=== PATIENT | male | born 1985 | race Caucasian/White ===

== ENCOUNTER 2022-02-24 10:10 | Emergency (ER) | payer OTHER ==
[2022-02-24] MEDS ORDERED: FENTANYL CITR 100 MCG/2 ML ONE (10:31)
[2022-02-24] MEDS ORDERED: ONDANSETRON 4 MG/2 ML VIAL ONE (10:32)
[2022-02-24] MEDS ORDERED: NEOMYC/POLYMYX/GRAMICID OPTH 10 ML BTL ONE (10:32)
[2022-02-24] MEDS ORDERED: NA CHLORIDE 0.9% 1,000 ML ONE (10:32)
[2022-02-24] MEDS ORDERED: TDAP (DIPHTH,PERTUSS(ACELL),TET VAC) 0.5 ML VIAL IMVAC ONE (10:32)
[2022-02-24 10:39] LABS: Absolute Lymphocytes (CBC) 2.5 K/uL (0.7-4.9); Hematocrit 41.1 % (39.6-49.0); Lymphocytes % 32.2 % (15.3-44.8); MCV 87.1 fL (80-100); MPV 6.8 fL (7.6-11.3); RBC Red Blood Cell Count 4.72 M/uL (4.33-5.43)
[2022-02-24 10:54] LABS: Albumin 3.6 g/dL (3.4-5.0); Bilirubin Direct 0.1 mg/dL (0-0.2); Bilirubin Total 0.4 mg/dL (0.2-1.0); Potassium 3.2 mmol/L (3.5-5.1); Protein, Total 7.9 g/dL (6.4-8.2)
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
--- NOTE | 2022-02-24 11:33 | RAD REPORT ---
EXAM DESCRIPTION: Herminia Single View02/24/2022 11:21 am CLINICAL HISTORY: Chest pain COMPARISON: 2010 FINDINGS: The lungs appear clear of acute infiltrate. The heart is normal size IMPRESSION: No acute abnormalities displayed
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
[2022-02-24] MEDS ORDERED: POTASSIUM 25 MEQ EFFERV TAB ONE (11:44)
[2022-02-24 12:39] VITALS: TEMP 97.6
[2022-02-24 12:41] VITALS: O2SAT 100
[2022-02-24 12:42] VITALS: BP 111/94
== END 2022-02-24 12:29 | disposition home or self-care (01) ==
LOC: ER 10:10
DX: S00.83XA Contusion of other part of head, initial encounter (principal); S80.812A Abrasion, left lower leg, initial encounter; S50.811A Abrasion of right forearm, initial encounter; E87.6 Hypokalemia; V47.5XXA Car driver injured in collision with fixed or stationary object in traffic accident, initial encounter
CPT/HCPCS: 96361; 85025; 80048; 36415; 86900; 86850; 82565; 86901; 80076; 83690; 70450; 72125; 71260; 74177; 71045; 72170; 96375; 96372; 96374; 99285; Q9967; J3010; J7030; J2405